=== PATIENT | male | born 1995 | race African-American/Black ===

== ENCOUNTER 2017-03-03 23:53 | Emergency (ER) | payer SELFPAY ==
[~2017-03-03] VITALS: Ht 175.3 cm; Wt 63.6 kg
[2017-03-03 23:57] VITALS: BP 126/69; PULSE 92; RESP 16; TEMP 100.5; O2SAT 99
[2017-03-04 01:59] VITALS: BP 113/70; PULSE 84; RESP 21; TEMP 101.8; O2SAT 97
[2017-03-04] MEDS ORDERED: ACETAMINOPHEN 325 MG TAB PO ONE (02:30)
[2017-03-04] MEDS ORDERED: SODIUM CHLOR 0.9% 1000 ML INJ 1,000 ML IV ONE (03:15)
[2017-03-04] MEDS ORDERED: ONDANSETRON HCL 4 MG/2 ML VIAL IV ONE (03:15)
[2017-03-04 03:16] VITALS: TEMP 98.1
--- NOTE | 2017-03-04 03:45 | PD ---
HPI Chief Complaint: Fever Time Seen by Provider: 02:57 Travel History International Travel<30 days: No Contact w/Intl Traveler<30days: No Traveled to known affect area: No History of Present Illness HPI Is a 21-year-old presents to the emergency department brought in by his mom for fever cough cold symptoms, nausea vomiting, decreased activity, not really wanting to eat much. His history of febrile seizures as a K. 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 SKIN: Focused skin assessment warm/dry. TMs normal. Throat is normal. HEAD: Atraumatic. Normocephalic. EYES: Pupils equal and round. No scleral icterus. No injection or drainage. ENT: No nasal bleeding or discharge. Mucous membranes pink and moist. NECK: Trachea midline. No JVD. CARDIOVASCULAR: Regular rate and rhythm. No murmur appreciated. RESPIRATORY: No accessory muscle use. Clear to auscultation. Breath sounds equal bilaterally. GASTROINTESTINAL: Abdomen soft, non-tender, nondistended. Hepatic and splenic margins not palpable. Abdomen flat and soft. No grimace with deep palpation or evidence of tenderness. MUSCULOSKELETAL: No obvious deformities. No clubbing. No cyanosis. No edema. NEUROLOGICAL: Awake and alert. Developmental delay. No obvious cranial nerve deficits. Motor grossly within normal limits. Normal speech. Data Data Last Documented VS Vital Signs Date Time Temp Pulse Resp B/P Pulse Ox O2 Delivery O2 Flow Rate FiO2 03/04/17 03:16 98.1 03/04/17 01:59 84 21 98 Room Air 03/04/17 01:59 113/70 Orders Acetaminophen (Tylenol) (03/04/17 02:30) Complete Blood Count With Diff (03/04/17 03:08) Comprehensive Metabolic Panel (03/04/17 03:08) Lipase (03/04/17 03:08) Chest, Single Ap (03/04/17 ) Urinalysis - C+S If Indicated (03/04/17 03:08) Sodium Chlor 0.9% 1000 Ml Inj (Ns 1000 M (03/04/17 03:15) Ondansetron Inj (Zofran Inj) (03/04/17 03:15) Labs Laboratory Tests Test 03/04/17 03:20 White Blood Count 9.5 TH/MM3 Red Blood Count 5.89 MIL/MM3 Hemoglobin 14.9 GM/DL Hematocrit 44.1 % Mean Corpuscular Volume 74.9 FL Mean Corpuscular Hemoglobin 25.3 PG Mean Corpuscular Hemoglobin 33.7 % Concent Red Cell Distribution Width 14.4 % Platelet Count 237 TH/MM3 Mean Platelet Volume 8.8 FL Neutrophils (%) (Auto) 57.0 % Lymphocytes (%) (Auto) 31.6 % Monocytes (%) (Auto) 11.2 % Eosinophils (%) (Auto) 0.0 % Basophils (%) (Auto) 0.2 % Neutrophils # (Auto) 5.4 TH/MM3 Lymphocytes # (Auto) 3.0 TH/MM3 Monocytes # (Auto) 1.1 TH/MM3 Eosinophils # (Auto) 0.0 TH/MM3 Basophils # (Auto) 0.0 TH/MM3 CBC Comment DIFF FINAL Differential Comment Urine Color YELLOW Urine Turbidity CLEAR Urine pH 6.0 Urine Specific [place] 1.036 Urine Protein 30 mg/dL Urine Glucose (UA) NEG mg/dL Urine Ketones 150 mg/dL Urine Occult Blood NEG Urine Nitrite NEG Urine Bilirubin NEG Urine Urobilinogen 4.0 MG/DL Urine Leukocyte Esterase NEG Urine RBC LESS THAN 1 /hpf Urine WBC 2 /hpf Urine Squamous Epithelial <1 /hpf Cells Urine Mucus MANY /lpf Microscopic Urinalysis Comment CULT NOT INDICATED Sodium Level 138 MEQ/L Potassium Level 4.4 MEQ/L Chloride Level 101 MEQ/L Carbon Dioxide Level 27.5 MEQ/L Anion Gap 10 MEQ/L Blood Urea Nitrogen 11 MG/DL Creatinine 0.57 MG/DL Estimat Glomerular Filtration 223 ML/MIN Rate Random Glucose 87 MG/DL Calcium Level 9.2 MG/DL Total Bilirubin 0.5 MG/DL Aspartate Amino Transf 63 U/L (AST/SGOT) Alanine Aminotransferase 30 U/L (ALT/SGPT) Alkaline Phosphatase 70 U/L Total Protein 8.1 GM/DL Albumin 3.9 GM/DL Lipase 150 U/L [facility] Medical Decision Making Medical Screen Exam Complete: Yes Emergency Medical Condition: Yes Interpretation(s) LABS: CBC is unremarkable. CMP is unremarkable. Lipase is normal. UA is unremarkable Chest x-ray negative Differential Diagnosis URI, viral syndrome, UTI, infection, other Narrative Course Medical decision making INITIAL: Well 21-year-old presents to the emergency department with for 5 days of fever or URI symptoms so she would nausea vomiting, decreased appetite, and concern for dehydration. He looks well. No definite sick contacts. No diarrhea. Mom states he may have had a little labored breathing. We'll check x -ray to rule out pneumonia. We'll check basic labs and urinalysis. Likely supportive treatment. Zofran and IV fluids. Diagnosis Primary Impression: URI (upper respiratory infection) Additional Instructions: Take acetaminophen or ibuprofen as needed for fever. The Zofran if needed for nausea or vomiting. Return to the emergency department for any new or worsening symptoms. Follow-up with his primary physician on Wednesday if not completely well. Scripts Ondansetron Odt (Zofran Odt)4 Mg Tab4 Mg SL Q8HR PRN (Nausea/Vomiting) #15 TAB May substitute non-ODT form. Prov:Marc Melton MD 03/04/17 Disposition: 01 DISCHARGE HOME Condition: Stable Marc Melton MD Mar 04, 2017 03:45
[2017-03-04 03:52] LABS: AUTOMATED NEUTROPHIL # 5.4 TH/MM3 (1.8-7.7); BASOPHIL % 0.2 % (0.0-2.0); HEMATOCRIT 44.1 % (39.0-51.0); HEMO FLAGS DIFF FINAL; LYMPH % 31.6 % (9.0-44.0); MEAN CELL VOLUME 74.9 FL (80.0-100.0); MEAN CORPUSCULAR HEMOGLOBIN 25.3 PG (27.0-34.0); MEAN CORPUSCULAR HGB CONC 33.7 % (32.0-36.0); MONO % 11.2 % (0.0-8.0); PLATELET COUNT 237 TH/MM3 (150-450); RED BLOOD COUNT 5.89 MIL/MM3 (4.50-5.90); RED CELL DISTRIBUTION WIDTH 14.4 % (11.6-17.2); WHITE BLOOD COUNT 9.5 TH/MM3 (4.0-11.0)
--- NOTE | 2017-03-04 04:00 | RADRPT ---
EXAM DATE/TIME: 03/04/2017 03:19 [place] COMPARISON: No previous studies available for comparison. INDICATIONS : Fever. Congestion. MEDICAL HISTORY : None. SURGICAL HISTORY : None. ENCOUNTER: Initial ACUITY: 3 days PAIN SCORE: 7/10 LOCATION: Bilateral chest FINDINGS: Single AP view of the chest. The lungs are clear. Cardiomediastinal silhouette within normal limits. No evidence of pleural effusion or pneumothorax. CONCLUSION: No acute cardiopulmonary disease identified. Maldonado Castro MD on March 04, 2017 at 3:58 Board Certified Radiologist. This report was verified electronically.
[2017-03-04 04:13] LABS: BLOOD, URINE NEG (NEG); COMMENT (UR) CULT NOT INDICATED; CULTURE IF INDICATED CULT NOT INDICATED; GLUCOSE,URINE NEG (NEG); KETONE, URINE 150 mg/dL (NEG); MUCUS URINE MANY /lpf (OCC); NITRITE,URINE NEG (NEG); SQUAMOUS EPITHELIAL CELL URINE <1 /hpf (0-5); URINE COLOR YELLOW (YELLW/STRAW)
[2017-03-04 04:15] LABS: ALKALINE PHOSPHATASE 70 U/L (45-117); ALT (GPT) 30 U/L (9-52); TOTAL BILIRUBIN ADULT 0.5 MG/DL (0.2-1.0)
[2017-03-04 04:32] LABS: ANION GAP 10 MEQ/L (5-15); AST (GOT) 63 U/L (15-39); BICARBONATE 27.5 MEQ/L (21.0-32.0); BLOOD UREA NITROGEN 11 MG/DL (7-18); CHLORIDE 101 MEQ/L (98-107); GLOMERULAR FILTRATION RATE 223 ML/MIN (>89); POTASSIUM 4.4 MEQ/L (3.5-5.1); SODIUM (NA) 138 MEQ/L (136-145)
[2017-03-04] MEDS ORDERED: ZOFR4TAB3 SL (04:40)
[2017-03-04 05:10] VITALS: BP 110/68
== END 2017-03-04 05:18 | disposition home or self-care (01) ==
LOC: NEPC 23:53
DX: J06.9 Acute upper respiratory infection, unspecified (principal); R11.2 Nausea with vomiting, unspecified
CPT/HCPCS: 71010; 80053; 81001; 83690; 85025; 96374; 99284; J2405; J7030